=== PATIENT | female | born 1960 | race Caucasian/White ===

== ENCOUNTER → 2018-01-15 | Day surgery (SDC) | payer OTHER ==
[~2018-01-15] VITALS: Ht 157.4 cm; Wt 72.6 kg
[~2018-01-15] MED LIST: AUGMENTIN 875 M1 TAB PO; CIPRODEX 0.3%-7.5 ML OT; NAPROXEN500 MG PO; ROSUVASTATIN CAL5 MG PO; ZYRTEC10 MG PO
--- NOTE | ~2018-01-15 | O ---
[place], [place] OPERATIVE NOTE NAME: CURT GARRIDO UNIT #: [id number] ROOM: DOCTOR: JOHN PERDOMO MD BIRTHDATE: [birth year] DOS: 01/15/2018 MDGASTROENDOSCOPIC REPORT HISTORY: This is a 57-year-old patient who presented with a chief complaint of colonic polyp in 2011, undergoing investigation. ALLERGIES: DEMEROL. FAMILY HISTORY: Noncontributory. PAST SURGICAL HISTORY: Cholecystectomy, tubal ligation. PAST MEDICAL HISTORY: Vertigo, hyperlipidemia, and nausea. SOCIAL HISTORY: Smoker, nonalcohol consumer. FAMILY HISTORY: Noncontributory. PROCEDURE: Today's procedure part of investigation is colonoscopy. PREMEDICATION: Propofol. SCOPE: Olympus forward-viewing colonoscope 10L video. REPORT: After putting the patient in left lateral position and application of lubricant to the scope, scope was introduced. Thereafter, under direct visualization, passed through the length of colon without difficulty. Colon mucosa and vascularity carefully examined. No ulceration, no lesion, no pathology was seen in the colon. Photographic series of the ileocecal valve was obtained. Mucosal vascularity carefully examined along the ascending, transverse, descending colon. Air was suctioned out. The patient was extubated, tolerated the procedure well. IMPRESSION: Normal colonoscopic examination. PLAN AND DISCUSSION: This patient can stay on high fiber diet. She does not need another colonoscopy at least for 5 years. [place], [place] OPERATIVE NOTE NAME: CURT GARRIDO UNIT #: [id number] ROOM: DOCTOR: JOHN PERDOMO MD BIRTHDATE: [birth year] JOHN PERDOMO MD CM:OPRECORD:OPERATIVE NOTE [id number] 1423 MD JOHN SANTORO MD 01/15/18 1425 interface
[2018-01-15 12:13] VITALS: BP 116/66
[2018-01-15 14:10] VITALS: BP 130/78
== END | disposition home or self-care (01) ==
LOC: SDC 01-14 08:45
DX: R11.2 Nausea with vomiting, unspecified (principal); E78.5 Hyperlipidemia, unspecified; F17.210 Nicotine dependence, cigarettes, uncomplicated; Z86.010 Personal history of colon polyps; Z88.8 Allergy status to other drugs, medicaments and biological substances; Z90.49 Acquired absence of other specified parts of digestive tract; Z98.51 Tubal ligation status; Z79.899 Other long term (current) drug therapy

== ENCOUNTER → 2020-03-05 | Outpatient (CLI) | payer OTHER | END | disposition home or self-care (01) | LOC: COVID19 13:27 | PROVIDERS: ATTEND Family Medicine | DX: U07.1 COVID-19 (principal) ==